=== PATIENT | male | born 1955 | race Hispanic/Latino ===

== ENCOUNTER → 2022-03-14 | Outpatient (CLI) | payer MEDICARE ==
[~2022-03-14] MED LIST: LIDOCAINE HCL 4% LTA SOL 4 ML VIAL ONE
== END | disposition home or self-care (01) ==
LOC: WHH 08:27
PROVIDERS: ATTEND Family Medicine
DX: L89.613 Pressure ulcer of right heel, stage 3 (principal); L89.513 Pressure ulcer of right ankle, stage 3; L89.621 Pressure ulcer of left heel, stage 1; L89.894 Pressure ulcer of other site, stage 4; L84 Corns and callosities; E11.42 Type 2 diabetes mellitus with diabetic polyneuropathy; G82.21 Paraplegia, complete; H91.8X2 Other specified hearing loss, left ear; E66.01 Morbid (severe) obesity due to excess calories; Z68.37 Body mass index [BMI] 37.0-37.9, adult; Z79.899 Other long term (current) drug therapy
CPT/HCPCS: 11042; A6248; A4450

== ENCOUNTER → 2022-03-21 | Outpatient (CLI) | payer MEDICARE | END | disposition home or self-care (01) | LOC: WHH 09:35 | PROVIDERS: ATTEND Family Medicine | DX: L89.513 Pressure ulcer of right ankle, stage 3 (principal); L89.613 Pressure ulcer of right heel, stage 3; L89.894 Pressure ulcer of other site, stage 4; L89.621 Pressure ulcer of left heel, stage 1; L84 Corns and callosities; E11.42 Type 2 diabetes mellitus with diabetic polyneuropathy; G82.21 Paraplegia, complete; H91.8X2 Other specified hearing loss, left ear; E66.01 Morbid (severe) obesity due to excess calories; Z68.37 Body mass index [BMI] 37.0-37.9, adult; Z79.899 Other long term (current) drug therapy | CPT/HCPCS: 11042 ==

== ENCOUNTER → 2022-04-18 | Outpatient (CLI) | payer MEDICARE | END | disposition home or self-care (01) | LOC: WHH 10:26 | PROVIDERS: ATTEND Family Medicine | DX: L89.894 Pressure ulcer of other site, stage 4 (principal); L89.513 Pressure ulcer of right ankle, stage 3; L89.621 Pressure ulcer of left heel, stage 1; L84 Corns and callosities; G82.21 Paraplegia, complete; E66.01 Morbid (severe) obesity due to excess calories; E11.42 Type 2 diabetes mellitus with diabetic polyneuropathy; H91.8X2 Other specified hearing loss, left ear; Z68.37 Body mass index [BMI] 37.0-37.9, adult; Z79.899 Other long term (current) drug therapy | CPT/HCPCS: 11042; G0463 ==

== ENCOUNTER → 2022-05-16 | Outpatient (CLI) | payer MEDICARE | END | disposition home or self-care (01) | LOC: WHH 10:03 | PROVIDERS: ATTEND Family Medicine | DX: L89.894 Pressure ulcer of other site, stage 4 (principal); L89.513 Pressure ulcer of right ankle, stage 3; L89.621 Pressure ulcer of left heel, stage 1; L89.613 Pressure ulcer of right heel, stage 3; L84 Corns and callosities; G82.21 Paraplegia, complete; E66.01 Morbid (severe) obesity due to excess calories; E11.42 Type 2 diabetes mellitus with diabetic polyneuropathy; H91.8X2 Other specified hearing loss, left ear; Z68.37 Body mass index [BMI] 37.0-37.9, adult; Z79.899 Other long term (current) drug therapy | CPT/HCPCS: 11042; A6209 ==

== ENCOUNTER → 2022-05-30 | Outpatient (CLI) | payer MEDICARE | END | disposition home or self-care (01) | LOC: WHH 09:36 | PROVIDERS: ATTEND Family Medicine | DX: L89.894 Pressure ulcer of other site, stage 4 (principal); L89.513 Pressure ulcer of right ankle, stage 3; L89.621 Pressure ulcer of left heel, stage 1; L89.613 Pressure ulcer of right heel, stage 3; L84 Corns and callosities; G82.21 Paraplegia, complete; E66.01 Morbid (severe) obesity due to excess calories; E11.42 Type 2 diabetes mellitus with diabetic polyneuropathy; H91.8X2 Other specified hearing loss, left ear; Z68.37 Body mass index [BMI] 37.0-37.9, adult; Z79.899 Other long term (current) drug therapy | CPT/HCPCS: 11042; A6209 ==

== ENCOUNTER → 2022-06-13 | Outpatient (CLI) | payer MEDICARE | END | disposition home or self-care (01) | LOC: WHH 09:10 | PROVIDERS: ATTEND Family Medicine | DX: L89.894 Pressure ulcer of other site, stage 4 (principal); L89.513 Pressure ulcer of right ankle, stage 3; L89.613 Pressure ulcer of right heel, stage 3; L84 Corns and callosities; G82.21 Paraplegia, complete; E66.01 Morbid (severe) obesity due to excess calories; E11.42 Type 2 diabetes mellitus with diabetic polyneuropathy; H91.8X2 Other specified hearing loss, left ear; Z68.37 Body mass index [BMI] 37.0-37.9, adult; Z79.899 Other long term (current) drug therapy | CPT/HCPCS: 11042; A6209; A6196; A4450 ==

== ENCOUNTER → 2022-06-27 | Outpatient (CLI) | payer MEDICARE ==
[~2022-06-27] MED LIST changes: +ACET-2247 PO; +CEPH500B PO; -LIDOCAINE HCL 4% LTA SOL 4 ML VIAL ONE
== END | disposition home or self-care (01) ==
LOC: WHH 08:57
PROVIDERS: ATTEND Nurse Practitioner Family
DX: L89.894 Pressure ulcer of other site, stage 4 (principal); L89.513 Pressure ulcer of right ankle, stage 3; L89.613 Pressure ulcer of right heel, stage 3; E11.42 Type 2 diabetes mellitus with diabetic polyneuropathy; L84 Corns and callosities; G82.21 Paraplegia, complete; E66.01 Morbid (severe) obesity due to excess calories; H91.8X2 Other specified hearing loss, left ear; Z68.37 Body mass index [BMI] 37.0-37.9, adult; Z79.899 Other long term (current) drug therapy
CPT/HCPCS: 11042; A6209

== ENCOUNTER → 2022-07-11 | Outpatient (CLI) | payer MEDICARE | END | disposition home or self-care (01) | LOC: WHH 09:05 | PROVIDERS: ATTEND Nurse Practitioner Family | DX: L89.894 Pressure ulcer of other site, stage 4 (principal); L89.513 Pressure ulcer of right ankle, stage 3; L89.613 Pressure ulcer of right heel, stage 3; E11.42 Type 2 diabetes mellitus with diabetic polyneuropathy; L84 Corns and callosities; G82.21 Paraplegia, complete; E66.01 Morbid (severe) obesity due to excess calories; H91.8X2 Other specified hearing loss, left ear; Z68.37 Body mass index [BMI] 37.0-37.9, adult; Z79.899 Other long term (current) drug therapy | CPT/HCPCS: 11042; A6209 ==

== ENCOUNTER → 2022-08-23 | Outpatient (CLI) | payer MEDICARE ==
[~2022-08-23] MED LIST changes: +BALSAM PERU/CASTOR OIL 60 GM TUBE TP ONE
== END | disposition home or self-care (01) ==
LOC: WHH 08:05
PROVIDERS: ATTEND Nurse Practitioner Family
DX: L89.894 Pressure ulcer of other site, stage 4 (principal); L89.513 Pressure ulcer of right ankle, stage 3; L89.613 Pressure ulcer of right heel, stage 3; L89.312 Pressure ulcer of right buttock, stage 2; L89.322 Pressure ulcer of left buttock, stage 2; E11.42 Type 2 diabetes mellitus with diabetic polyneuropathy; L84 Corns and callosities; G82.21 Paraplegia, complete; E66.01 Morbid (severe) obesity due to excess calories; H91.8X2 Other specified hearing loss, left ear; Z68.37 Body mass index [BMI] 37.0-37.9, adult; Z79.899 Other long term (current) drug therapy
CPT/HCPCS: 11042; A6209; A6248; A4450

== ENCOUNTER → 2022-09-05 | Outpatient (CLI) | payer MEDICARE ==
[~2022-09-05] MED LIST changes: -BALSAM PERU/CASTOR OIL 60 GM TUBE TP ONE; +LIDOCAINE HCL 4% LTA SOL 4 ML VIAL TP ONE
== END | disposition home or self-care (01) ==
LOC: WHH 09:12
PROVIDERS: ATTEND Nurse Practitioner Family
DX: L89.894 Pressure ulcer of other site, stage 4 (principal); L89.513 Pressure ulcer of right ankle, stage 3; L89.613 Pressure ulcer of right heel, stage 3; L89.322 Pressure ulcer of left buttock, stage 2; E11.42 Type 2 diabetes mellitus with diabetic polyneuropathy; L89.312 Pressure ulcer of right buttock, stage 2; G82.21 Paraplegia, complete; L84 Corns and callosities; E66.01 Morbid (severe) obesity due to excess calories; Z68.37 Body mass index [BMI] 37.0-37.9, adult; Z79.899 Other long term (current) drug therapy
CPT/HCPCS: 11042; A6021; A6209; A6196; A4450

== ENCOUNTER → 2022-10-31 | Outpatient (CLI) | payer MEDICARE ==
[~2022-10-31] MED LIST changes: +BALSAM PERU/CASTOR OIL 60 GM TUBE TP ONE; -LIDOCAINE HCL 4% LTA SOL 4 ML VIAL TP ONE
== END | disposition home or self-care (01) ==
LOC: WHH 08:05
PROVIDERS: ATTEND Nurse Practitioner Family
DX: L89.513 Pressure ulcer of right ankle, stage 3 (principal); L89.894 Pressure ulcer of other site, stage 4; L89.623 Pressure ulcer of left heel, stage 3; L89.322 Pressure ulcer of left buttock, stage 2; E11.42 Type 2 diabetes mellitus with diabetic polyneuropathy; L84 Corns and callosities; G82.21 Paraplegia, complete; E66.01 Morbid (severe) obesity due to excess calories; Z68.37 Body mass index [BMI] 37.0-37.9, adult; Z79.899 Other long term (current) drug therapy
CPT/HCPCS: 11042; A6021; A6209